=== PATIENT | female | born 1950 | race Hispanic/Latino ===

== ENCOUNTER 2017-05-21 09:01 | Inpatient (IN) | payer MEDICARE ==
[2017-05-21] MEDS ORDERED: NITRO-BID 2% TP ONE (09:33)
[2017-05-21] MEDS ORDERED: TESSALON PERLES PO ONE (09:33)
[2017-05-21] MEDS ORDERED: ASPIRIN PO ONE (09:33)
[2017-05-21] MEDS ORDERED: ZOFRAN IV ONE (09:33)
[2017-05-21] MEDS ORDERED: MORPHINE IV ONE (09:33)
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
[2017-05-21 10:14] LABS: Basophils % (Auto) 0.2 % (0.0-1.8); Eosinophils % (Auto) 0.3 % (0.0-4.3); Hematocrit 49.8 % (30.3-42.9); Hemoglobin 16.2 gm/dl (10.1-14.3); Mean Corpuscular HGB Conc 33 % (30-34); Mean Corpuscular Hemoglobin 28 pg (28-32); Mean Corpuscular Volume 87 fl (79-97); Red Blood Count 5.73 M/mm3 (3.65-5.03); Red Cell Distribution Width 14.9 % (13.2-15.2); White Blood Count 15.3 K/mm3 (4.5-11.0)
[2017-05-21 10:20] LABS: Platelet Count 223 K/mm3 (140-440)
[2017-05-21 10:31] LABS: Creatine Kinase MB 3.3 ng/mL (0.0-4.0)
[2017-05-21 10:32] LABS: Anion Gap 30 mmol/L; BUN/Creatinine Ratio 5.22; Blood Urea Nitrogen 46 mg/dL (7-17); Carbon Dioxide 15 mmol/L (22-30); Chloride 94.4 mmol/L (98-107); Creatine Kinase 256 units/L (30-135); Glucose 98 mg/dL (65-100); Sodium 136 mmol/L (137-145)
--- NOTE | 2017-05-21 11:08 | XRay Report ---
Single view chest: History: Chest pain. Findings: Borderline cardiomegaly. Trachea is midline. Prominent vascular markings lower left lower lobe. Normal CP angles. Suspicion of mild emphysema. Impression: Prominent muscular markings left lower lobe may represent early pneumonitis
[2017-05-21] MEDS ORDERED: NACL 0.9% 1000 ML 1,000 ML ONE ×2 (11:24→12:59)
--- NOTE | 2017-05-21 11:33 | History and Physical Report ---
History of Present Illness Chief complaint: I feel sick, and im hurting History of present illness: 66 Yo Female Personal Chcf Resident with Schizophrenia, HTN, Nicotine Dependence presents to ED for evaluation. Pt states that she has experienced pain for the past 3 days. Upon interview, patients pain is epigastric in location as designated by the patient. Pt states that pain is 5/10, epigastric, nonradiating, no exacerbating or alleviating factors. Pt also complains of nausea, and vomiting. Pt unable to provide more detailed history due to underlying mental condition. No reports of fever, chills, palpitations, syncope , trauma, BRBPR, Recent Ill contacts, melena, productive cough, CP, hemoptysis, unintentional weight loss or night sweats. Past History Past Medical History: hypertension, other (Schizophrenia, ) Past Surgical History: Other (face surgery) Social history: single, smoking. denies: alcohol abuse, prescription drug abuse Family history: no significant family history (reviewed), other (reviewed) Medications and Allergies Allergies Allergy/AdvReac Type Severity Reaction Status Date / Time No Known Allergies Allergy Unverified 05/21/17 09:59 Home Medications Medication Instructions Recorded Confirmed Last Taken Type Benztropine [Cogentin] 0.5 mg PO BID 05/21/17 05/21/17 Unknown History Fluticasone Furoate [Veramyst 1 spray NS DAILY 05/21/17 05/21/17 Unknown History NASAL 27.5 MCG/SPRAY] LORazepam [Ativan] 0.5 mg PO BID 05/21/17 05/21/17 Unknown History Vitamin E 400 unit PO DAILY 05/21/17 05/21/17 Unknown History fluPHENAZine HCL [fluPHENAZine] 10 mg PO HS 05/21/17 05/21/17 Unknown History Review of Systems Constitutional: no weight loss, no weight gain, no fever, no chills Ears, nose, mouth and throat: no ear pain, no ear discharge, no tinnitis, no decreased hearing, no nose pain, no nasal congestion Cardiovascular: no orthopnea, no palpitations, no rapid/irregular heart beat, no edema, no syncope Respiratory: no cough with sputum, no excessive sputum, no hemoptysis, no shortness of breath Gastrointestinal: nausea, vomiting, no diarrhea, no constipation Genitourinary Female: no pelvic pain, no flank pain, no menorrhagia Rectal: no pain, no incontinence, no bleeding Musculoskeletal: no neck stiffness, no neck pain, no shooting arm pain, no arm numbness/tingling, no low back pain Integumentary: no rash, no pruritis, no redness, no sores, no wounds, no jaundice Neurological: no head injury, no transient paralysis, no paralysis, no weakness , no parathesias, no numbness, no tingling, no seizures, no syncope Psychiatric: no memory loss, no sleep disturbances, no insomnia, no hypersomnia , no change in appetite, no change in libido, no suicidal ideation Endocrine: no cold intolerance, no heat intolerance, no polyphagia, no excessive thirst, no polydipsia, no polyuria, no nocturia, no excessive sweating Hematologic/Lymphatic: no easy bruising, no easy bleeding Allergic/Immunologic: no urticaria, no allergic rhinitis, no wheezing Exam - Constitutional Vitals: Temp Pulse Resp BP Pulse Ox 97.3 F L 64 18 86/47 94 05/21/17 09:40 05/21/17 11:30 05/21/17 11:30 05/21/17 11:30 05/21/17 11:30 General appearance: Present: mild distress - EENT Eyes: Present: PERRL ENT: hearing intact, clear oral mucosa - Neck Neck: Present: supple, normal ROM - Respiratory Respiratory effort: normal Respiratory: bilateral: CTA - Cardiovascular Heart Sounds: Present: S1 & S2. Absent: rub, click - Extremities Extremities: pulses symmetrical, No edema Peripheral Pulses: within normal limits - Abdominal General gastrointestinal: Present: soft Female genitourinary: Present: normal - Integumentary Integumentary: Present: clear, dry, decreased turgor - Musculoskeletal Musculoskeletal: generalized weakness - Psychiatric Psychiatric: no intact judgment & insight, no memory intact - Neurologic Neurologic: CNII-XII intact, moves all extremities Results - Labs CBC & Chem 7: 05/21/17 09:42 05/21/17 09:42 Labs: Abnormal lab results 05/21/17 05/21/17 Range/Units 09:42 09:42 WBC 15.3 H (4.5-11.0) K/mm3 RBC 5.73 H (3.65-5.03) M/mm3 Hgb 16.2 H (10.1-14.3) gm/dl Hct 49.8 H (30.3-42.9) % [place] # 1.1 H (0.0-0.8) K/mm3 Seg Neutrophils % 77.1 H (40.0-70.0) % Seg Neutrophils # 11.8 H (1.8-7.7) K/mm3 Sodium 136 L (137-145) mmol/L Potassium 3.0 L (3.6-5.0) mmol/L Chloride 94.4 L (98-107) mmol/L Carbon Dioxide 15 L (22-30) mmol/L BUN 46 H (7-17) mg/dL Creatinine 8.8 H (0.7-1.2) mg/dL Total Creatine Kinase 256 H (30-135) units/L Assessment and Plan - Patient Problems (1) Sepsis Current Visit: Yes Status: Acute Qualifiers: Sepsis type: S Plan to address problem: IV abx, serial lactic acid, monitor uop q shift, supportive care, blood cultures , (2) ARF (acute renal failure) Current Visit: Yes Status: Acute Qualifiers: Acute renal failure type: A Plan to address problem: IVF replacement, renal ultrasound, urine electrolytes, nephrology consulted (3) Hyponatremia syndrome Current Visit: Yes Status: Acute Plan to address problem: IVF resuscitation, monitor uop q shift, (4) Acute renal failure Current Visit: Yes Status: Acute Qualifiers: Acute renal failure type: A Plan to address problem: IVF replacement, supportive care, (5) DVT prophylaxis Current Visit: Yes Status: Acute
[2017-05-21] MEDS ORDERED: NACL 0.9% 1000 ML 1,000 ML IV ONE (11:34)
[2017-05-21] MEDS ORDERED: PROVENTIL IH PRN (11:56)
[2017-05-21] MEDS ORDERED: DULCOLAX PR PRN (11:56)
[2017-05-21] MEDS ORDERED: ZOFRAN IV PRN (11:56)
[2017-05-21] MEDS ORDERED: MILK OF MAGNESIA PO PRN (11:56)
[2017-05-21] MEDS ORDERED: VANCOMYCIN VIAL IV ONE (11:59)
[2017-05-21] MEDS ORDERED: NACL 0.9% 1000 ML IV ONE (11:59)
[2017-05-21] MEDS ORDERED: VANCOMYCIN PHARMACY TO DOSE IV SCH (12:00)
[2017-05-21] MEDS ORDERED: NACL 0.9% 1000 ML 2,000 ML IV ONE (13:00)
--- NOTE | 2017-05-21 13:47 | Ultrasound Report ---
ULTRASOUND RENAL BILATERAL HISTORY: Renal failure. TECHNIQUE: transabdominal ultrasound with color Doppler interrogation. FINDINGS: The right kidney measures 9.6 x 4.2 x 4.0cm. Right renal cortex: 1.0cm. The left kidney measures 9.1 x 4.1 x 5.8cm. Left renal cortex: 1.0cm. Scans of the kidneys show normal renal contours. There is normal central calyceal clustering and good preservation of the cortical thickness. There is no evidence of mass or hydronephrosis. The bladder is empty. IMPRESSION: Unremarkable renal ultrasound.
[2017-05-21] MEDS ORDERED: VANCOMYCIN 1,250 MG in NACL 0.9% 250ML 250 ML IV ONE (14:00)
[2017-05-21] MEDS ORDERED: ZOSYN/NS 4.5GM/100ML 4.5 GM/100 ML VIAL IV SCH (14:00)
--- NOTE | 2017-05-21 14:52 | Consultation ---
History of Present Illness - Reason for Consult Consult date: 05/21/17 acute renal failure, metabolic acidosis - History of Present Illness The patient is a 66 YO WF with medical history significant for Schizophrenia, HTN and Nicotine Dependence presented to the ED for evaluation of abd pain, nausea, vomiting and diarrhea. Patient is a poor historian and unable to obtain a good. Patient was hypotensive on admission with creatinine of 8.8 and potassium of 3. She received 2 Lts of Iv fluid bolus. Past History Past Medical History: hypertension, other (Schizophrenia, ) Past Surgical History: Other (face surgery) Social history: single, smoking. denies: alcohol abuse, prescription drug abuse Family history: no significant family history (reviewed), other (reviewed) Medications and Allergies Allergies Allergy/AdvReac Type Severity Reaction Status Date / Time No Known Allergies Allergy Unverified 05/21/17 09:59 Home Medications Medication Instructions Recorded Confirmed Last Taken Type Benztropine [Cogentin] 0.5 mg PO BID 05/21/17 05/21/17 Unknown History Fluticasone Furoate [Veramyst 1 spray NS DAILY 05/21/17 05/21/17 Unknown History NASAL 27.5 MCG/SPRAY] LORazepam [Ativan] 0.5 mg PO BID 05/21/17 05/21/17 Unknown History Vitamin E 400 unit PO DAILY 05/21/17 05/21/17 Unknown History fluPHENAZine HCL [fluPHENAZine] 10 mg PO HS 05/21/17 05/21/17 Unknown History traZODone [Desyrel] 100 mg PO HS 05/21/17 05/21/17 05/20/17 21:00 History Active Meds: Active Medications Acetaminophen (Tylenol) 650 mg PO Q4H PRN PRN Reason: Pain MILD(1-3)/Fever >100.5/NIETO Albuterol (Proventil) 2.5 mg IH Q4HRT PRN PRN Reason: Shortness Of Breath Bisacodyl (Dulcolax) 10 mg RI QDAY PRN PRN Reason: Constipation unrelieved by MOM Piperacillin Sod/Tazobactam Sod (Zosyn/Ns 2.25 Gm/50ml) 2.25 gm in 50 mls @ 100 mls/hr IV Q8HR MIGUEL A Sodium Chloride (Nacl 0.9% 1000 Ml) 2,000 mls @ 999 mls/hr IV ONCE ONE PRN Reason: As Directed Stop: 05/21/17 15:00 Last Admin: 05/21/17 13:04 Dose: 999 mls/hr Vancomycin HCl 1,250 mg/ (Sodium Chloride) 262.5 mls @ 166.667 mls/hr IV ONCE ONE Stop: 05/21/17 15:34 Magnesium Hydroxide (Milk Of Magnesia) 30 ml PO Q4H PRN PRN Reason: Constipation Ondansetron HCl (Zofran) 4 mg IV Q8H PRN PRN Reason: N/V unrelieved by Alvaro Vancomycin HCl (Vancomycin Pharmacy To Dose) 1 each IV PKCONSULT MIGUEL A PRN Reason: Protocol Review of Systems ROS unobtainable: due to mental status Exam - Vital Signs Vital signs: Vital Signs Temp Pulse Resp BP Pulse Ox 97.3 F L 70 18 90/50 99 05/21/17 09:40 05/21/17 09:40 05/21/17 09:40 05/21/17 09:40 05/21/17 09:40 - General Appearance General appearance: well-developed, well-nourished, appears stated age, obese, other (no distress) EENT: ATNC, PERRL, mucous membranes dry, hearing intact, vision intact Neck: Present: neck supple, trachea midline Respiratory: Clear to Ascultation Heart: regular, S1S2, no murmurs Gastrointestinal: Present: normoactive bowel sounds, obese. Absent: tenderness , distended Integumentary: no rash Neurologic: no focal deficit, no asterixis, confused, CN 3-12 intact Musculoskeletal: Present: other (no edema) Psychiatric: cooperative Results - Lab Results 05/21/17 09:42 05/21/17 09:42 Most recent lab results Calcium 10.0 mg/dL (8.4-10.2) 05/21/17 09:42 - Image Kidney/bladder ultrasound: report reviewed Assessment and Plan - Patient Problems (1) ARF (acute renal failure) Current Visit: Yes Status: Acute Qualifiers: Acute renal failure type: A Plan to address problem: Acute kidney injury hemodynamically mediated in the setting of volume depletion and hypotension. Baseline creatinine is unavailable at this time. Continue IV fluids. Renal prognosis is guarded. (2) Hypotension Current Visit: Yes Status: Acute Qualifiers: Hypotension type: H Trimester: T Plan to address problem: Secondary to volume depletion. Continue IV fluids. (3) Metabolic acidosis Current Visit: Yes Status: Acute (4) Sepsis Current Visit: Yes Status: Acute Qualifiers: Sepsis type: S
[2017-05-21] MEDS: NACL 0.9% 1000 ML 1,000 ML IV SCH (18:30)
[2017-05-21] MEDS: ZOSYN/NS 2.25 GM/50ML 2.25 GM/50 ML BAG IV SCH ×2 (22:01→22:02)
[2017-05-21] MEDS: DESYREL PO SCH (23:49)
[2017-05-21] MEDS: TESSALON PERLES PO PRN (23:50)
[2017-05-22] MEDS: NACL 0.9% 1000 ML 1,000 ML IV SCH (02:22)
[2017-05-22] MEDS: ZOSYN/NS 2.25 GM/50ML 2.25 GM/50 ML BAG IV SCH ×3 (05:15→21:31)
[2017-05-22 06:41] LABS: Albumin 3.5 g/dL (3.9-5); Albumin/Globulin Ratio 1.3 %; BUN/Creatinine Ratio 7.92; Bilirubin,Total 0.3 mg/dL (0.1-1.2); Calcium 8.5 mg/dL (8.4-10.2); Chloride 106.2 mmol/L (98-107); Magnesium 2.1 mg/dL (1.7-2.3); Phosphorous 4.6 mg/dL (2.5-4.5); Total Protein 6.3 g/dL (6.3-8.2)
[2017-05-22 06:45] LABS: Potassium 2.7 mmol/L (3.6-5.0)
[2017-05-22] MEDS ORDERED: K-DUR PO ONE (06:55)
[2017-05-22] MEDS ORDERED: IMODIUM PO ONE (11:20)
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
[2017-05-22] MEDS: FLAGYL 500 MG/100 ML 500 MG/100 ML BAG IV SCH ×2 (14:30→22:15)
--- NOTE | 2017-05-22 17:04 | Progress Note ---
Assessment and Plan CARMINE - Resolving prerenal azotemia as BUN/Cr improved from 46/8.8 to 42/5.3 overnight, however, still suspect Acute on CKD, Check Urine prot/Cr ration, continue IVF & f/u labs Electrolyte Imbalance - Change IVF to Bicarb drip & f/u A-G Metab Acidosis, Replenish K & f/u Mg, Phos Hypotension - F/u on IVF & hold BP meds Subjective Date of service: 05/22/17 Interval history: Feeling better, No CP/N/V Objective - Vital Signs Vital signs: Vital Signs - 12hr 05/22/17 05/22/17 05/22/17 08:46 10:00 11:20 Temperature 97.8 F 97.6 F Pulse Rate 73 61 Respiratory 18 18 Rate Blood Pressure 107/43 106/54 O2 Sat by Pulse 99 97 97 Oximetry - General Appearance General appearance: other (Awake & alert) Neck: no JVD Respiratory: Present: Clear to Ascultation Cardiology: regular, S1S2 Gastrointestinal: normal - Lab 05/21/17 09:42 05/22/17 05:54 Most recent lab results Calcium 8.5 mg/dL (8.4-10.2) 05/22/17 05:54 Phosphorus 4.60 mg/dL (2.5-4.5) H 05/22/17 05:54 Magnesium 2.10 mg/dL (1.7-2.3) 05/22/17 05:54 Urine Creatinine 519.2 mg/dL (0.1-20.0) H 05/21/17 13:48 Urine Sodium 22 mEq/L 05/21/17 13:48
[2017-05-22] MEDS ORDERED: D5W 1,000 ML with SODIUM BICARBONATE 150 MEQ IV SCH (18:00)
[2017-05-22] MEDS: TYLENOL PO PRN (21:30)
[2017-05-22] MEDS: TESSALON PERLES PO PRN (21:30)
[2017-05-22] MEDS: DESYREL PO SCH (21:31)
[2017-05-23] MEDS: ZOSYN/NS 2.25 GM/50ML 2.25 GM/50 ML BAG IV SCH ×3 (06:00→19:42)
[2017-05-23] MEDS: FLAGYL 500 MG/100 ML 500 MG/100 ML BAG IV SCH ×3 (06:56→21:47)
[2017-05-23 07:10] LABS: Basophils % (Auto) 0.9 % (0.0-1.8); Eosinophils % (Auto) 4.3 % (0.0-4.3); Hematocrit 38.9 % (30.3-42.9); Hemoglobin 12.9 gm/dl (10.1-14.3); Mean Corpuscular HGB Conc 33 % (30-34); Mean Corpuscular Hemoglobin 29 pg (28-32); Mean Corpuscular Volume 87 fl (79-97); Platelet Count 195 K/mm3 (140-440); Red Blood Count 4.46 M/mm3 (3.65-5.03); Red Cell Distribution Width 14.9 % (13.2-15.2); White Blood Count 5.9 K/mm3 (4.5-11.0)
[2017-05-23 08:37] LABS: BUN/Creatinine Ratio 19.33; Calcium 8.7 mg/dL (8.4-10.2); Chloride 113.2 mmol/L (98-107); Magnesium 1.9 mg/dL (1.7-2.3)
[2017-05-23] MEDS ORDERED: VANCOMYCIN/NS 1 GM/250 ML 1 GM/250 ML BAG IV ONE (10:00)
[2017-05-23 10:17] LABS: Phosphorous 3.2 mg/dL (2.5-4.5)
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
[2017-05-23] MEDS ORDERED: REGLAN IV PRN (11:24)
--- NOTE | 2017-05-23 14:57 | Progress Note ---
Assessment and Plan CARMINE - Resolving prerenal azotemia, continue IVF & f/u BUN/Cr Lytes - Change IVF to D5w & f/u HyperNa+, replenish K+ Hypotension - Add Midodrine & f/u vitals closely Subjective Date of service: 05/23/17 Interval history: Feeling better, No complaints Objective - Vital Signs Vital signs: Vital Signs - 12hr 05/23/17 05/23/17 08:39 12:36 Temperature 98.2 F 97.7 F Pulse Rate 61 55 L Respiratory 18 18 Rate Blood Pressure 103/48 94/35 O2 Sat by Pulse 93 95 Oximetry - General Appearance General appearance: other (Awake & alert) Neck: no JVD Respiratory: Present: Other (Good air entry) Cardiology: regular, S1S2 Gastrointestinal: normal - Lab 05/23/17 06:45 05/23/17 06:45 Most recent lab results Calcium 8.7 mg/dL (8.4-10.2) 05/23/17 06:45 Phosphorus 3.20 mg/dL (2.5-4.5) D 05/23/17 06:45 Magnesium 1.90 mg/dL (1.7-2.3) 05/23/17 06:45 Urine Creatinine 519.2 mg/dL (0.1-20.0) H 05/21/17 13:48 Urine Sodium 22 mEq/L 05/21/17 13:48
[2017-05-23] MEDS ORDERED: D5W 1,000 ML IV SCH (15:00)
[2017-05-23] MEDS: DESYREL PO SCH (21:43)
[2017-05-23] MEDS: TYLENOL PO PRN (21:43)
[2017-05-23] MEDS: TESSALON PERLES PO PRN (21:43)
[2017-05-24] MEDS: ZOSYN/NS 2.25 GM/50ML 2.25 GM/50 ML BAG IV SCH ×2 (00:22→05:49)
[2017-05-24] MEDS: IMODIUM A-D PO PRN ×3 (00:22→15:27)
[2017-05-24 05:09] LABS: Hematocrit 36.2 % (30.3-42.9); Hemoglobin 11.9 gm/dl (10.1-14.3); Mean Corpuscular HGB Conc 33 % (30-34); Mean Corpuscular Hemoglobin 28 pg (28-32); Mean Corpuscular Volume 86 fl (79-97); Platelet Count 196 K/mm3 (140-440); Red Blood Count 4.21 M/mm3 (3.65-5.03); Red Cell Distribution Width 14.3 % (13.2-15.2); White Blood Count 5.7 K/mm3 (4.5-11.0)
[2017-05-24 05:17] LABS: Anion Gap 17 mmol/L; Blood Urea Nitrogen 16 mg/dL (7-17); Calcium 8.1 mg/dL (8.4-10.2); Carbon Dioxide 21 mmol/L (22-30); Chloride 108.8 mmol/L (98-107); Glucose 102 mg/dL (65-100); Sodium 144 mmol/L (137-145)
[2017-05-24 05:38] LABS: Potassium 2.6 mmol/L (3.6-5.0)
[2017-05-24] MEDS ORDERED: MAGNESIUM SULFATE 2GM/50ML 2 GM/50 ML BAG IV ONE ×2 (05:52→14:00)
[2017-05-24] MEDS: FLAGYL 500 MG/100 ML 500 MG/100 ML BAG IV SCH (06:20)
[2017-05-24] MEDS: KCL 10MEQ/100ML 10 MEQ/100 ML BAG IV SCH ×4 (07:14→15:23)
--- NOTE | 2017-05-24 09:21 | Progress Note ---
Assessment and Plan - Patient Problems (1) ARF (acute renal failure) Current Visit: Yes Status: Acute Qualifiers: Acute renal failure type: A Plan to address problem: Acute kidney injury hemodynamically mediated in the setting of volume depletion and hypotension. Renal function has improved. Continue IV fluids. (2) Hypotension Current Visit: Yes Status: Acute Qualifiers: Hypotension type: H Trimester: T Plan to address problem: Secondary to volume depletion. Improving with IV fluids. (3) Hypokalemia Current Visit: Yes Status: Acute Plan to address problem: Replete K. Change IV fluids to 1/2 NS. (4) Metabolic acidosis Current Visit: Yes Status: Acute Plan to address problem: Improving. (5) Sepsis Current Visit: Yes Status: Acute Qualifiers: Sepsis type: S Subjective Date of service: 05/24/17 Interval history: Patient is feeling better. Objective - Vital Signs Vital signs: Vital Signs - 12hr 05/23/17 05/24/17 23:31 09:04 Temperature 98.2 F 98.2 F Pulse Rate 52 L 49 L Respiratory 18 16 Rate Blood Pressure 111/33 Blood Pressure 101/47 [Left] O2 Sat by Pulse 97 Oximetry - General Appearance General appearance: well-developed, well-nourished, appears stated age, obese, other (no distress) EENT: ATNC, PERRL, mucous membranes moist, hearing intact, vision intact Neck: no JVD, supple Respiratory: Present: Clear to Ascultation Cardiology: regular, S1S2, no murmurs Gastrointestinal: normoactive bowel sounds, no tenderness, no distended, obese Integumentary: no rash, warm and dry Neurologic: no focal deficit, no asterixis, confused, CN 3-12 intact Musculoskeletal: other (no edema) Psychiatric: mood/affect appropriate, cooperative - Lab 05/24/17 04:36 05/24/17 04:36 Most recent lab results Calcium 8.1 mg/dL (8.4-10.2) L 05/24/17 04:36 Phosphorus 3.20 mg/dL (2.5-4.5) D 05/23/17 06:45 Magnesium 1.60 mg/dL (1.7-2.3) L 05/24/17 04:36 Urine Creatinine 519.2 mg/dL (0.1-20.0) H 05/21/17 13:48 Urine Sodium 22 mEq/L 05/21/17 13:48
[2017-05-24] MEDS ORDERED: VANCOMYCIN/NS 1 GM/250 ML 1 GM/250 ML BAG IV SCH (10:00)
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
[2017-05-24] MEDS ORDERED: K-DUR PO ONE ×2 (11:00→14:00)
[2017-05-24] MEDS: ROCEPHIN/NS 1 GM/50 ML 1 GM/50 ML BAG IV SCH (12:52)
[2017-05-24] MEDS: NACL 0.45% 1000 ML 1,000 ML IV SCH (12:52)
[2017-05-24] MEDS ORDERED: ZOSYN/NS 4.5GM/100ML 4.5 GM/100 ML VIAL IV SCH (14:00)
[2017-05-24] MEDS: FLAGYL PO SCH ×2 (15:25→22:07)
[2017-05-24] MEDS: DESYREL PO SCH (22:07)
[2017-05-25] MEDS: NACL 0.45% 1000 ML 1,000 ML IV SCH (04:06)
[2017-05-25] MEDS: FLAGYL PO SCH ×2 (05:25→15:44)
[2017-05-25] MEDS ORDERED: MAGNESIUM SULFATE IV ONE (08:25)
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
[2017-05-25 08:35] LABS: Hematocrit 38.1 % (30.3-42.9); Hemoglobin 13.2 gm/dl (10.1-14.3); Mean Corpuscular HGB Conc 35 % (30-34); Mean Corpuscular Hemoglobin 30 pg (28-32); Mean Corpuscular Volume 85 fl (79-97); Platelet Count 206 K/mm3 (140-440); Red Blood Count 4.47 M/mm3 (3.65-5.03); Red Cell Distribution Width 14.3 % (13.2-15.2); White Blood Count 6.5 K/mm3 (4.5-11.0)
[2017-05-25 08:57] LABS: Anion Gap 15 mmol/L; BUN/Creatinine Ratio 10; Blood Urea Nitrogen 6 mg/dL (7-17); Calcium 8.4 mg/dL (8.4-10.2); Carbon Dioxide 25 mmol/L (22-30); Chloride 108.1 mmol/L (98-107); Glucose 93 mg/dL (65-100); Potassium 3.5 mmol/L (3.6-5.0); Sodium 145 mmol/L (137-145)
[2017-05-25] MEDS ORDERED: MAGNESIUM SULFATE 2GM/50ML 2 GM/50 ML BAG IV ONE (09:00)
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
[2017-05-25] MEDS: IMODIUM PO PRN ×3 (09:56→19:03)
--- NOTE | 2017-05-25 10:00 | Progress Note ---
Assessment and Plan - Patient Problems (1) ARF (acute renal failure) Status: Acute Qualifiers: Acute renal failure type: A Plan to address problem: Acute kidney injury hemodynamically mediated in the setting of volume depletion and hypotension. Renal function has improved. (2) Hypotension Status: Acute Qualifiers: Hypotension type: H Trimester: T Plan to address problem: Secondary to volume depletion. Improving with IV fluids. (3) Hypokalemia Status: Acute Plan to address problem: Replete K. (4) Metabolic acidosis Status: Acute Plan to address problem: Improved. (5) Sepsis Status: Acute Qualifiers: Sepsis type: S Subjective Date of service: 05/25/17 Interval history: Patient is feeling better. Objective - General Appearance General appearance: well-developed, well-nourished, appears stated age, obese, other (no distress) EENT: ATNC, PERRL, mucous membranes moist, hearing intact, vision intact Neck: no JVD, supple Respiratory: Present: Clear to Ascultation Cardiology: regular, S1S2, no murmurs Gastrointestinal: normoactive bowel sounds, no tenderness, no distended, obese Integumentary: no rash Neurologic: no focal deficit, no asterixis, disoriented Musculoskeletal: other (no edema) Psychiatric: mood/affect appropriate, cooperative - Lab 05/25/17 07:42 05/25/17 07:42 Most recent lab results Calcium 8.4 mg/dL (8.4-10.2) 05/25/17 07:42 Phosphorus 3.20 mg/dL (2.5-4.5) D 05/23/17 06:45 Magnesium 1.90 mg/dL (1.7-2.3) 05/25/17 07:42 Urine Creatinine 519.2 mg/dL (0.1-20.0) H 05/21/17 13:48 Urine Sodium 22 mEq/L 05/21/17 13:48
[2017-05-25] MEDS: KCL 10MEQ/100ML 10 MEQ/100 ML BAG IV SCH ×2 (12:55→14:13)
[2017-05-25] MEDS: ROCEPHIN/NS 1 GM/50 ML 1 GM/50 ML BAG IV SCH (13:02)
[2017-05-25] MEDS ORDERED: NACL 0.9% 500 ML 500 ML ONE (13:59)
[2017-05-25] MEDS ORDERED: NACL 0.9% 500 ML 500 ML IV ONE (15:10)
[2017-05-25] MEDS ORDERED: K-DUR PO ONE (16:00)
[2017-05-25 16:45] VITALS: BP 126/51
== END 2017-05-25 20:10 | disposition home or self-care (01) | DRG 871 ==
LOC: ED 09:01 → 3A 11:57
PROVIDERS: ADMIT Internal Medicine; ATTEND Internal Medicine
DX: A41.9 Sepsis, unspecified organism (principal); J69.0 Pneumonitis due to inhalation of food and vomit; N17.0 Acute kidney failure with tubular necrosis; E87.1 Hypo-osmolality and hyponatremia; A04.9 Bacterial intestinal infection, unspecified; E87.2 Acidosis; I95.9 Hypotension, unspecified; F17.200 Nicotine dependence, unspecified, uncomplicated; I10 Essential (primary) hypertension; F20.9 Schizophrenia, unspecified; F32.9 Major depressive disorder, single episode, unspecified; E87.6 Hypokalemia; E83.42 Hypomagnesemia; Z79.899 Other long term (current) drug therapy
CPT/HCPCS: 36415; 71010; 76770; 80048; 80053; 80202; 82140; 82550; 82553; 82570; 83735; 83880; 83970; 84100; 84300; 84484; 85025; 85027; 85379; 87040; 87493; 93005; 93010; 96361; 96374; 96375; J0696; J2405; J2543; J3370; J3475; J3480; J7030; J7040; J7050; J7070

== ENCOUNTER 2020-11-13 20:04 | Observation (INO) | payer MEDICARE ==
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
--- NOTE | 2020-11-13 21:53 | Cat Scan Report ---
CT HEAD WITHOUT CONTRAST INDICATION / CLINICAL INFORMATION: Lightheadedness/Dizziness. TECHNIQUE: All CT scans at this location are performed using CT dose reduction for ALARA by means of automated e xposure control. COMPARISON: CT 11/10/2017 FINDINGS: HEMORRHAGE: No evidence of intracranial hemorrhage or extra-axial fluid collection. EXTRA-AXIAL SPACES: Cortical sulci and sylvian fissures are enlarged reflecting a degree of parenchym al volume loss which is greater than expected for the patient's age of 70. Basilar cisterns have an u nremarkable appearance. VENTRICULAR SYSTEM: The third and lateral ventricles are enlarged reflecting presence of moderate fili tral greater than cortical atrophy. Persistence of the cava septum pellucidum and cavum vergae is obs erved. CEREBRAL PARENCHYMA: Periventricular and deep white matter lucency is observed. This is probably seco ndary to microvascular ischemic change. There is no indication of recent infarction. No areas of ence phalomalacia are identified. MIDLINE SHIFT OR HERNIATION: There is no mass effect. CEREBELLUM / BRAINSTEM: Brainstem has an unremarkable appearance. Age related cerebellar atrophy is n oted. MIDLINE STRUCTURES:Pituitary gland has an unremarkable appearance. No abnormalities are seen in the p ineal region. INTRACRANIAL VESSELS:Calcified atherosclerotic plaque is present along the course of the cavernous se gments of both internal carotid arteries. Similar findings are seen at the distal vertebral arteries. ORBITS: visualized portions of the orbits have an unremarkable appearance. SOFT TISSUES of HEAD: No significant abnormality. CALVARIUM: Evaluation of bone windows reveals no abnormalities. PARANASAL SINUSES / MASTOID AIR CELLS: Paranasal sinuses are free from inflammatory mucosal disease. Mastoid air cells are normally pneumatized. IMPRESSION: 1. Moderate central greater than cortical atrophy greater than expected for age 70 years. 2. No acute intracranial abnormality. No significant change. Signer Name: Kameron Mcintyre MD Signed: 11/13/2020 9:49 PM Workstation Name: [id number]
[2020-11-13 21:59] LABS: Creatine Kinase MB 1.8 ng/mL (0.0-4.0)
[2020-11-13 22:00] LABS: Alanine Aminotransferase 11 units/L (7-56); Albumin 3.6 g/dL (3.9-5); BUN/Creatinine Ratio 23; Blood Urea Nitrogen 18 mg/dL (7-17); Calcium 9.1 mg/dL (8.4-10.2); Hemolysis Index 20
--- NOTE | 2020-11-13 22:07 | XRay Report ---
CHEST 1 VIEW 11/13/2020 8:58 PM INDICATION / CLINICAL INFORMATION: Lightheadedness/Dizziness. COMPARISON: 10/04/2018. FINDINGS: SUPPORT DEVICES: None. HEART / MEDIASTINUM: Stable. LUNGS / PLEURA: Diffuse interstitial prominence, most pronounced in the right lung base. No pneumotho rax. ADDITIONAL FINDINGS: No significant additional findings. IMPRESSION: 1. Diffuse interstitial prominence is stable from 10/04/2018 and is compatible with chronic interstiti al lung disease. Signer Name: Andrew Hoang MD Signed: 11/13/2020 10:02 PM Workstation Name: [id number]
[2020-11-13 22:09] LABS: Basophils # (Auto) 0.1 K/mm3 (0.0-0.1); Basophils % (Auto) 0.4 % (0.0-1.8); Eosinophils # (Auto) 0.1 K/mm3 (0.0-0.4); Eosinophils % (Auto) 0.5 % (0.0-4.3); Hemoglobin 12.2 gm/dl (10.1-14.3); Lymphocytes # (Auto) 1.5 K/mm3 (1.2-5.4); Lymphocytes % (Auto) 10.8 % (13.4-35.0); Mean Corpuscular HGB Conc 33 % (30-34); Mean Corpuscular Volume 85 fl (79-97); Monocytes # (Auto) 0.9 K/mm3 (0.0-0.8); Monocytes % (Auto) 6.7 % (0.0-7.3); Platelet Count 197 K/mm3 (140-440); Red Blood Count 4.37 M/mm3 (3.65-5.03); Red Cell Distribution Width 14.8 % (13.2-15.2)
[2020-11-13 22:51] LABS: Bacteria,Urine 4+ /HPF (Negative); Bilirubin,Urine NEG (Negative); Blood,Urine SM (Negative); Color,Urine Yellow (Yellow); Hyaline Casts,Urine 2 /LPF; Mucus,Urine 1+ /HPF; Urobilinogen,Urine < 2.0 mg/dL (<2.0)
[2020-11-13 22:53] LABS: Amphetamine Screen,Urine Negative; Benzodiazepines Screen,Urine Negative; Cannabinoid Screen,Urine Negative; Cocaine Screen,Urine Negative; Methadone Screen,Urine Negative; Opiate Screen,Urine Negative
[2020-11-13] MEDS ORDERED: CEFEPIME/NS 2 GM/100 ML 2 GM/100 ML BAG IV ONE (22:58)
[2020-11-13] MEDS ORDERED: SODIUM CHLORIDE 0.9% 1000 ML 1,000 ML IV ONE (23:04)
[2020-11-13] MEDS ORDERED: D5W/0.45% NACL 1,000 ML IV SCH (23:45)
[2020-11-13] MEDS ORDERED: ONDANSETRON 4 MG/2 ML INJ IV PRN (23:47)
[2020-11-13] MEDS ORDERED: ALBUTEROL 2.5 MG/3 ML NEBU IH PRN (23:47)
[2020-11-13] MEDS ORDERED: ACETAMINOPHEN 325 MG TAB PO PRN (23:47)
--- NOTE | 2020-11-13 23:57 | History and Physical Report ---
History of Present Illness Date of examination: 11/13/20 Date of admission: 11/13/20 23:05 Chief complaint: Dizziness fell History of present illness: 70-year-old female with history of hypertension schizophrenia and dementia was brought to the emergency room with complaints of dizziness and nausea and vomiting. Patient fell at home today due to her dizziness and lightheadedness and she had 1 bout of nausea vomiting. Patient states she does not remember what happened. Patient denies loss of conscious. Patient denies hitting her head. Patient states she did not injure herself she just went to her knees and sat on the floor. Patient denies neck pain. Patient denies chest pain or shortness of breath. Patient states that her symptoms have resolved and are intermittent. Patient states her dizziness and lightheadedness are better with rest and worse with walking. In the ER initial CT scan shows no acute intracranial abnormality. Patient also found to have UTI Past History Past Medical History: hypertension Medications and Allergies Allergies Allergy/AdvReac Type Severity Reaction Status Date / Time No Known Allergies Allergy Unverified 05/21/17 09:59 Home Medications Medication Instructions Recorded Confirmed Last Taken Type traZODone [Desyrel] 100 mg PO HS 05/21/17 11/13/20 10/04/18 History Buspirone HCl [busPIRone] 15 mg PO TID 11/10/17 11/13/20 10/04/18 09:00 History OLANzapine [ZyPREXA] 2.5 mg PO QDAY 11/10/17 11/13/20 10/03/18 History Sertraline [Zoloft] 100 mg PO QDAY 11/10/17 11/13/20 10/04/18 History donepeziL [Aricept] 10 mg PO QDAY 11/10/17 11/13/20 10/03/18 History Cetirizine HCl [Cetirizine 10mg 10 mg PO QDAY 11/13/20 11/13/20 Unknown History chew] Active Meds: Active Medications Acetaminophen (Acetaminophen 325 Mg Tab) 650 mg PO Q4H PRN PRN Reason: Pain MILD(1-3)/Fever >100.5/NIETO Albuterol (Albuterol 2.5 Mg/3 Ml Nebu) 2.5 mg IH Q4HRT PRN PRN Reason: Shortness Of Breath Donepezil HCl (Donepezil 10 Mg Tab) 10 mg PO QDAY MIGUEL A Famotidine (Famotidine 20 Mg Tab) 20 mg PO BID MIGUEL A Heparin Sodium (Porcine) (Heparin 5,000 Unit/1 Ml Vial) 5,000 unit SUB-Q Q8HR MIGUEL A Sodium Chloride (Nacl 0.9% 1000 Ml) 1,000 mls @ 999 mls/hr IV BOLUS ONE Stop: 11/14/20 00:04 Last Admin: 11/13/20 23:47 Dose: 999 mls/hr Documented by: Dextrose/Sodium Chloride (D5/0.45ns) 1,000 mls @ 100 mls/hr IV DIRECT MIGUEL A Cefepime HCl (Cefepime/Ns 2 Gm/100 Ml) 2 gm in 100 mls @ 200 mls/hr IV Q8H MIGUEL A; Protocol Miscellaneous Medication (Buspirone Hcl [Buspirone]) 15 mg PO TID MIGUEL A Olanzapine (Olanzapine 2.5 Mg Tab) 2.5 mg PO QDAY MIGUEL A Ondansetron HCl (Ondansetron 4 Mg/2 Ml Inj) 4 mg IV Q8H PRN PRN Reason: Nausea And Vomiting Sertraline HCl (Sertraline 100 Mg Tab) 100 mg PO QDAY [facility] Sodium Chloride (Sodium Chloride 0.9% 10 Ml Flush Syringe) 10 ml IV BID MIGUEL A Sodium Chloride (Sodium Chloride 0.9% 10 Ml Flush Syringe) 10 ml IV PRN PRN PRN Reason: LINE FLUSH Trazodone HCl (Trazodone 100 Mg Tab) 100 mg PO HS [facility] Review of Systems Cardiovascular: lightheadedness Exam - Constitutional Vitals: Temp Pulse Resp BP Pulse Ox 97.9 F 64 12 103/48 96 11/13/20 20:15 11/13/20 23:00 11/13/20 23:00 11/13/20 23:00 11/13/20 23:00 General appearance: Present: no acute distress, well-nourished - EENT Eyes: Present: PERRL ENT: hearing intact, clear oral mucosa - Neck Neck: Present: supple, normal ROM - Respiratory Respiratory effort: normal Respiratory: bilateral: CTA - Cardiovascular Heart Sounds: Present: S1 & S2. Absent: rub, click - Extremities Extremities: pulses symmetrical, No edema Peripheral Pulses: within normal limits - Abdominal General gastrointestinal: Present: soft, non-tender, non-distended, normal bowel sounds Female genitourinary: Present: normal - Integumentary Integumentary: Present: clear, warm, dry - Musculoskeletal Musculoskeletal: gait normal, strength equal bilaterally - Psychiatric Psychiatric: appropriate mood/affect, intact judgment & insight - Neurologic Neurologic: CNII-XII intact, moves all extremities HEART Score - HEART Score Troponin: Troponin T < 0.010 ng/mL (0.00-0.029) 11/13/20 21:14 Results - Labs CBC & Chem 7: 11/13/20 21:14 11/13/20 21:14 Labs: Laboratory Last Values WBC 14.0 K/mm3 (4.5-11.0) H 11/13/20 21:14 RBC 4.37 M/mm3 (3.65-5.03) 11/13/20 21:14 Hgb 12.2 gm/dl (10.1-14.3) 11/13/20 21:14 Hct 37.0 % (30.3-42.9) 11/13/20 21:14 MCV 85 fl (79-97) 11/13/20 21:14 MCH 28 pg (28-32) 11/13/20 21:14 MCHC 33 % (30-34) 11/13/20 21:14 RDW 14.8 % (13.2-15.2) 11/13/20 21:14 Plt Count 197 K/mm3 (140-440) 11/13/20 21:14 Lymph % (Auto) 10.8 % (13.4-35.0) L 11/13/20 21:14 [place] % (Auto) 6.7 % (0.0-7.3) 11/13/20 21:14 Eos % (Auto) 0.5 % (0.0-4.3) 11/13/20 21:14 Baso % (Auto) 0.4 % (0.0-1.8) 11/13/20 21:14 Lymph # (Auto) 1.5 K/mm3 (1.2-5.4) 11/13/20 21:14 [place] # (Auto) 0.9 K/mm3 (0.0-0.8) H 11/13/20 21:14 Eos # (Auto) 0.1 K/mm3 (0.0-0.4) 11/13/20 21:14 Baso # (Auto) 0.1 K/mm3 (0.0-0.1) 11/13/20 21:14 Seg Neutrophils % 81.6 % (40.0-70.0) H 11/13/20 21:14 Seg Neutrophils # 11.4 K/mm3 (1.8-7.7) H 11/13/20 21:14 Sodium 137 mmol/L (137-145) 11/13/20 21:14 Potassium 4.0 mmol/L (3.6-5.0) 11/13/20 21:14 Chloride 102.6 mmol/L (98-107) 11/13/20 21:14 Carbon Dioxide 23 mmol/L (22-30) 11/13/20 21:14 Anion Gap 15 mmol/L 11/13/20 21:14 BUN 18 mg/dL (7-17) H 11/13/20 21:14 Creatinine 0.8 mg/dL (0.6-1.2) 11/13/20 21:14 Estimated GFR > 60 ml/min 11/13/20 21:14 BUN/Creatinine Ratio 23 % 11/13/20 21:14 Glucose 100 mg/dL (65-100) 11/13/20 21:14 Calcium 9.1 mg/dL (8.4-10.2) 11/13/20 21:14 Total Bilirubin 0.20 mg/dL (0.1-1.2) 11/13/20 21:14 AST 23 units/L (5-40) 11/13/20 21:14 ALT 11 units/L (7-56) 11/13/20 21:14 Alkaline Phosphatase 102 units/L (35-129) 11/13/20 21:14 Total Creatine Kinase 50 units/L (30-135) 11/13/20 21:14 CK-MB (CK-2) 1.8 ng/mL (0.0-4.0) 11/13/20 21:14 CK-MB (CK-2) Rel Index 3.6 (0-4) 11/13/20 21:14 Troponin T < 0.010 ng/mL (0.00-0.029) 11/13/20 21:14 Total Protein 6.3 g/dL (6.3-8.2) 11/13/20 21:14 Albumin 3.6 g/dL (3.9-5) L 11/13/20 21:14 Albumin/Globulin Ratio 1.3 % 11/13/20 21:14 Urine Color Yellow (Yellow) 11/13/20 22:39 Urine Turbidity Cloudy (Clear) 11/13/20 22:39 Urine pH 5.0 (5.0-7.0) 11/13/20 22:39 Ur Specific [place] 1.020 (1.003-1.030) 11/13/20 22:39 Urine Protein 30 mg/dl mg/dL (Negative) 11/13/20 22:39 Urine Glucose (UA) Neg mg/dL (Negative) 11/13/20 22:39 Urine Ketones Neg mg/dL (Negative) 11/13/20 22:39 Urine Blood Sm (Negative) 11/13/20 22:39 Urine Nitrite Pos (Negative) 11/13/20 22:39 Urine Bilirubin Neg (Negative) 11/13/20 22:39 Urine Urobilinogen < 2.0 mg/dL (<2.0) 11/13/20 22:39 Ur Leukocyte Esterase Lg (Negative) 11/13/20 22:39 Urine WBC (Auto) 88.0 /HPF (0.0-6.0) H 11/13/20 22:39 Urine RBC (Auto) 7.0 /HPF (0.0-6.0) 11/13/20 22:39 U Epithel Cells (Auto) 16.0 /HPF (0-13.0) H 11/13/20 22:39 Urine Bacteria (Auto) 4+ /HPF (Negative) 11/13/20 22:39 Hyaline Casts 2 /LPF 11/13/20 22:39 Urine Mucus 1+ /HPF 11/13/20 22:39 Urine Yeast (Budding) 1+ /HPF 11/13/20 22:39 Urine Opiates Screen Negative 11/13/20 22:39 Urine Methadone Screen Negative 11/13/20 22:39 Ur Barbiturates Screen Negative 11/13/20 22:39 Ur Phencyclidine Scrn Negative 11/13/20 22:39 Ur Amphetamines Screen Negative 11/13/20 22:39 U Benzodiazepines Scrn Negative 03/24/21 22:39 Urine Cocaine Screen Negative 11/13/20 22:39 U Marijuana (THC) Screen Negative 11/13/20 22:39 Drugs of Abuse Note Disclamer 11/13/20 22:39 Plasma/Serum Alcohol < 0.01 % (0-0.07) 11/13/20 21:14 - Imaging and Cardiology CT Scan - head: image reviewed Assessment and Plan VTE prophylaxis?: Chemical Plan of care discussed with patient/family: Yes - Patient Problems (1) Dizziness Current Visit: Yes Status: Acute Plan to address problem: Admit the patient to the medical telemetry. Put the patient on D5 half-normal saline at the rate of 100 cc/h. We will do the serial cardiac enzyme. We also do echocardiogram. We also consult physical therapy for evaluation. Will consult cardiology if needed (2) Fall Current Visit: Yes Status: Acute Qualifiers: Encounter type: initial encounter Qualified Code(s): W19.XXXA - Unspecified fall, initial encounter Plan to address problem: Patient is on fall precaution. Will consult physical therapy for evaluation (3) UTI (urinary tract infection) Current Visit: Yes Status: Acute Qualifiers: Urinary tract infection type: acute cystitis Hematuria presence: with hematuria Qualified Code(s): N30.01 - Acute cystitis with hematuria Plan to address problem: We will put the patient on cefepime 2 g IV every 8 hours. Due to the blood culture urine culture. Recheck CBC in the morning (4) Schizophrenia Current Visit: No Status: Acute Plan to address problem: Patient schizophrenia is stable now. We will continue the home subphrenic medication. Outpatient follow-up with psychiatry (5) HTN (hypertension) Current Visit: Yes Status: Acute Plan to address problem: Hypertension is a stable we will continue the home medication. We measured the blood pressure every 8 hours. (6) DVT prophylaxis Current Visit: Yes Status: Acute Plan to address problem: Heparin 5000 units subcu every 8 hours. Pepcid 20 mg p.o. twice daily for GI prophylaxis. Patient is a full code
[2020-11-14] MEDS: FAMOTIDINE 20 MG TAB PO SCH ×2 (01:15→09:04)
[2020-11-14] MEDS ORDERED: CEFEPIME/NS 2 GM/100 ML 2 GM/100 ML BAG IV SCH (06:00)
[2020-11-14] MEDS ORDERED: HEPARIN 5,000 UNIT/1 ML VIAL SUB-Q SCH (06:00)
[2020-11-14 07:14] LABS: Basophils # (Auto) 0.1 K/mm3 (0.0-0.1); Basophils % (Auto) 0.6 % (0.0-1.8); Blood Urea Nitrogen 14 mg/dL (7-17); Calcium 8.5 mg/dL (8.4-10.2); Eosinophils # (Auto) 0.1 K/mm3 (0.0-0.4); Eosinophils % (Auto) 1.2 % (0.0-4.3); Hematocrit 40.7 % (30.3-42.9); Hemoglobin 13.9 gm/dl (10.1-14.3); Hemolysis Index 11; Lymphocytes # (Auto) 2.8 K/mm3 (1.2-5.4); Lymphocytes % (Auto) 27.2 % (13.4-35.0); Mean Corpuscular HGB Conc 34 % (30-34); Mean Corpuscular Volume 82 fl (79-97); Monocytes # (Auto) 0.8 K/mm3 (0.0-0.8); Monocytes % (Auto) 7.7 % (0.0-7.3); Red Blood Count 4.96 M/mm3 (3.65-5.03)
[2020-11-14 07:38] LABS: BUN/Creatinine Ratio 23
[2020-11-14] MEDS ORDERED: busPIRone 10 MG TAB PO SCH (08:00)
[2020-11-14 08:07] LABS: Platelet Count 186 K/mm3 (140-440)
[2020-11-14] MEDS: busPIRone 5 MG TAB PO SCH ×2 (09:05→13:37)
[2020-11-14] MEDS ORDERED: SERTRALINE 100 MG TAB PO SCH (10:00)
[2020-11-14] MEDS ORDERED: DONEPEZIL 10 MG TAB PO SCH (10:00)
--- NOTE | 2020-11-14 11:25 | Electrocardiograph Report ---
[facility] Test Date: 2020-11-13 Test Time: 22:44:26 Pat Name: LEOBARDO HOWELL Department: Room: [facility] 1 Gender: F Shipping Helper: SAIRA : 1950 Requested By: ELMA MUÑIZ III Order Number: [id number] Reading MD: Andrey Plascencia Measurements Intervals [place] Rate: 61 P: 70 AK: 196 QRS: 21 QRSD: 86 T: 54 QT: 455 QTc: 458 Interpretive Statements Sinus rhythm No previous ECG available for comparison Electronically Signed On 11-14-2020 8:24:57 PDT by Andrey Plascencia
--- NOTE | 2020-11-14 12:38 | Discharge Summary ---
Providers - Providers Date of Admission: 11/13/20 23:05 Date of discharge: 11/14/20 Attending physician: DANNI ANAND 11/13/20 23:50 Physical Therapy Evaluation and Treat [CONS] Routine Comment: Reason For Exam: gait training Primary care physician: VETERINARY EPIDEMIOLOGIST Hospitalization Condition: Stable Hospital course: 70-year-old female that presents emergency room with complaints of dizziness and nausea and vomiting. Patient states she fell at home today due to her dizziness and lightheadedness and she had 1 bout of nausea vomiting. Patient states she does not remember what happened. Patient denies loss of conscious. Patient denies hitting her head. Patient states she did not injure herself she just went to her knees and sat on the floor. Patient denies neck pain. Patient denies chest pain or shortness of breath. Patient denies blood in her vomitus. Patient states that her symptoms have resolved and are intermittent. Patient states her dizziness and lightheadedness are better with rest and worse with walking. Patient denies this happening in the past. Patient states this all happened at her [facility]. Review of records shows the patient has been here for similar complaints in the past 1 to 3 years nd each time found to have UTI. In the ER, patient was found to have UTI and she was started on IV antibiotics and admitted to the hospital. Echocardiogram PT/OT also ordered for further evaluation. I saw and examined patient at bedside this morning. Her dizziness has resolved. Echocardiogram shows normal systolic function with no significant valvular abnormality. Orthostatic vitals negative. Patient has been ambulating in her room without any symptoms. She has been seen by physical therapy who recommends home. She will be discharged on oral antibiotics to complete in 5 days. She will follow-up with her PCP in 1 week. She will be going back to her [facility] Disposition: - TO HOME OR SELFCARE Final Discharge Diagnosis (Prints w/discharge instructions): UTI Time spent for discharge: 30 - Discharge Diagnoses (1) Dizziness Status: Acute (2) UTI (urinary tract infection) Status: Acute Qualifiers: Urinary tract infection type: acute cystitis Hematuria presence: with hematuria Qualified Code(s): N30.01 - Acute cystitis with hematuria Core Measure Documentation - Palliative Care Palliative Care/ Comfort Measures: Not Applicable - Core Measures Any of the following diagnoses?: none Exam - Physical Exam Narrative exam: VITAL SIGNS: Reviewed. GENERAL: Awake HEAD: No signs of head trauma. EYES: Pupils are equal. Extraocular motions intact. MOUTH: Oropharynx is normal. NECK: No adenopathy, no JVD. CHEST: Chest with diminished breath sounds bilaterally. No wheezes, rales, or rhonchi. CARDIAC: normal S1 and S2, without murmurs, gallops, or rubs. ABDOMEN: Soft, non tender and non distended. No rebound or guarding, and no masses palpated. Bowel Sounds normal. MUSCULOSKELETAL: No edema NEUROLOGIC EXAM: Alert and oriented x3. No focal neurologic deficits. Orthostatic vitals negative SKIN: No obvious lesions - Constitutional Vitals: Temp Pulse Resp BP Pulse Ox 97.9 F 83 18 105/41 98 11/13/20 20:15 11/14/20 00:55 11/14/20 00:55 11/14/20 01:30 11/14/20 09:47 Plan Additional Instructions: Continue antibiotics for UTI for 5 more days. Follow- up with PCP in 1 week Follow up with: PRIMARY MD KEITH [Primary Care Provider] - 7 Days Prescriptions: Cefdinir 300 mg PO BID #10 capsule
[2020-11-14 12:47] VITALS: BP 116/48
[2020-11-14] MEDS ORDERED: busPIRone 5 MG TAB PO SCH (14:00)
[2020-11-14] MEDS ORDERED: traZODone 100 MG TAB PO SCH (22:00)
== END 2020-11-14 14:25 | disposition home or self-care (01) ==
LOC: ED 20:04 → 3A 23:05
PROVIDERS: ADMIT Hospitalist; ATTEND Internal Medicine
DX: N39.0 Urinary tract infection, site not specified (principal); R42 Dizziness and giddiness; I10 Essential (primary) hypertension; G93.40 Encephalopathy, unspecified; R41.82 Altered mental status, unspecified; F20.9 Schizophrenia, unspecified; D72.829 Elevated white blood cell count, unspecified; M19.90 Unspecified osteoarthritis, unspecified site; F02.80 Dementia in other diseases classified elsewhere, unspecified severity, without behavioral disturbance, psychotic disturbance, mood disturbance, and anxiety; F31.9 Bipolar disorder, unspecified; F17.200 Nicotine dependence, unspecified, uncomplicated; Z79.899 Other long term (current) drug therapy; W18.39XA Other fall on same level, initial encounter; Y93.89 Activity, other specified; Y92.89 Other specified places as the place of occurrence of the external cause; Y99.8 Other external cause status
CPT/HCPCS: 36415; 70450; 71045; 80048; 80053; 80307; 81001; 82550; 82553; 84484; 85025; 87086; 93005; 93306; 96365; 96366; 96372; 97162; 99291; G0378; J0692; J1644; J7030; 80320; G0480